=== PATIENT | female | born 1995 | race Caucasian/White ===

== ENCOUNTER 2023-03-06 21:07 | Emergency (ER) | payer OTHER, BC ==
[~2023-03-06] VITALS: Ht 162.6 cm; Wt 104.3 kg
[2023-03-06 21:45] VITALS: BP 138/76; PULSE 80; RESP 16; TEMP 97.5; O2SAT 100
[2023-03-06] MEDS ORDERED: IBUPROFEN 600 MG TAB PO ONE (22:50)
[2023-03-07] MEDS ORDERED: NAPR-54 PO (00:35)
[2023-03-07 00:42] VITALS: BP 138/76; PULSE 80; RESP 16; TEMP 97.5; O2SAT 100
== END 2023-03-07 00:43 | disposition home or self-care (01) ==
LOC: EDSEX 21:07 → MED 21:07
DX: S93.492A Sprain of other ligament of left ankle, initial encounter (principal); V49.88XA Car occupant (driver) (passenger) injured in other specified transport accidents, initial encounter; Y93.89 Activity, other specified; Y92.89 Other specified places as the place of occurrence of the external cause; Y99.8 Other external cause status
CPT/HCPCS: 73610; 99283